=== PATIENT | female | born 1935 | race Caucasian/White ===

== ENCOUNTER 2017-03-30 22:12 | Emergency (ER) | payer OTHER, BC ==
[~2017-03-30] VITALS: Ht 152.4 cm; Wt 57.3 kg
[2017-03-30 22:15] VITALS: TEMP 36.3; Ht 152.4 cm; Wt 57.3 kg
--- NOTE | 2017-03-30 22:36 | EMERGENCY ROOM VISIT NOTE ---
ED Visit Note First contact with patient: 22:19 I have seen and examined this patient with Rosey Fowler and generally agree with the treatment plan as discussed. Vital Signs Date Time Temp Pulse Resp B/P (MAP) Pulse Ox O2 Delivery O2 Flow Rate FiO2 03/30/17 22:15 36.3 72 20 213/106 98 Room Air Departure Information Referrals No Doctor, Assigned (PCP) Patient Instructions My [facility]
[2017-03-30 23:12] VITALS: BP 157/72; PULSE 66; O2SAT 96
--- NOTE | 2017-03-30 23:15 | EMERGENCY ROOM VISIT NOTE ---
History First contact with patient: 22:19 Chief Complaint: FOREIGNBODY ANY BODY PART Stated Complaint: RT EAR HEARING AIDE PIECE LODGED History of Present Illness The patient is a 81 year old female who presents to the Emergency Room with complaints of piece of her hearing aid stuck in her ear canal for the past 5 hours. Patient states she has been extremely upset and anxious over the ear piece in her ear canal. They did attempt to get the ear piece out with no success. Patient is out of town visiting. Patient states her blood pressure normally is 130/80. She states she feels anxious and believes her blood pressure is up because of this. No other complaints per patient. Review of Systems A 6 system review of systems was completed with positives and pertinent negatives listed in the HPI. Past Medical/Surgical History CVA, hypertension, diabetes, hyperlipidemia, bladder incontinence Social History Smoking Status: Former Smoker Drug Use: none Physical Exam Vital Signs Date Time Temp Pulse Resp B/P (MAP) Pulse Ox O2 Delivery O2 Flow Rate FiO2 03/30/17 23:12 66 16 157/72 96 Room Air 03/30/17 22:52 70 16 193/83 99 03/30/17 22:15 36.3 72 20 213/106 98 Room Air Physical Exam VITALS: Vitals are noted on the nurse's note and reviewed by myself. Vital signs hypertensive GENERAL: Pleasant female anxious appearing, in no acute distress, nondiaphoretic , well-developed well-nourished. SKIN: Capillary reflex less than 2 seconds. HEENT: Normocephalic. PERRLA. EOMI. Nares patent. Mucous membranes moist. Neck is supple without nuchal rigidity. Ear: Right ear canal with part of the hearing aid lodged in the canal. This is easily removed using alligator forceps. Ear canal is revisualized and no bleeding. TM is intact. MUSCULOSKELETAL: No gross musculoskeletal defects. NEURO: Patient was alert and oriented to person place and time. Medical Decision & Procedures ED Course Prior records reviewed and summarized as above. Triage Nursing notes reviewed. Additional history obtained from family The patient's history was concerning for foreign body in the ear canal Differential diagnosis: Etiologies such as foreign body in the ear canal, otitis, ear trauma as well as others were entertained.. Physical examination: The physical examination was consistent with foreign body in the ear canal ER treatment provided: Patient verbalized consent and using alligator forceps, the hearing aid piece was easily removed. Ear canals re-visualized and no bleeding. TM is intact. Nurse Hollie was present. Patient tolerated procedure well. On reassessment the patient felt better. Diagnostics interpreted by me: deferred This appears to be isolated foreign body in the ear canal, removed. By the evaluation outlined above emergent etiologies such as ear trauma, otitis , as well as others were deemed relatively unlikely. The pt informed about the findings as listed above. All questions were answered and pleased with the treatment. Return instructions were outlined and the patient was discharged in stable condition. Referral: The patient was referred back to primary care physician for follow-up in 2 to 3 days for a recheck of the current condition. Case reviewed with my attending Patient was informed her blood pressure was elevated. This was rechecked. This was improved. 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 Patient was anxious all day over the foreign body in the ear canal and believes her blood pressure is up because of this. She has been taking her medicines as directed. Patient had no symptoms. She was advised to closely monitor her blood pressure and to follow-up with family care. Medical Decision As above Medication Reconcilliation Current Medication List: was personally reviewed by me Blood Pressure Screening Patient's blood pressure: Elevated blood pressure Blood pressure disposition: Referred to PCP Impression Primary Impression: Acute foreign body of right ear canal Departure Information Dispostion Home / Self-Care Condition GOOD Referrals No Doctor, Assigned (PCP) Patient Instructions My [employer] Additional Instructions Monitor your blood pressure. It was high today. Continue current medications. Decrease stress. Follow-up with family care in 2-3 days for reevaluation for your elevated blood pressure. Return to ER sooner for chest pain, difficulty breathing, headaches, weakness, worsening signs or symptoms or as needed. Problem Qualifiers Primary Impression: Acute foreign body of right ear canal Encounter type: initial encounter Qualified Codes: T16.1XXA - Foreign body in right ear, initial encounter
== END 2017-03-30 23:20 | disposition home or self-care (01) ==
LOC: C.EDB 22:15 → C.EDC 23:20
DX: T16.1XXA Foreign body in right ear, initial encounter (principal); X58.XXXA Exposure to other specified factors, initial encounter; Z97.4 Presence of external hearing-aid; I10 Essential (primary) hypertension; E11.9 Type 2 diabetes mellitus without complications; Z87.891 Personal history of nicotine dependence